=== PATIENT | female | born 1960 | race African-American/Black ===

== ENCOUNTER → 2016-11-11 | Outpatient (CLI) | payer OTHER ==
[~2016-11-11] MED LIST: ALLEGRA-D 12 H1 EAC2 PO; AVALIDE 300-251 EACH PO; CALTRATE-600 W1 EACH PO; CLONAZEPAM PO; EFFEXOR100 MG PO; FLONASE INH; LORTAB 5 MG/5001 TA1 PO; MULTIVITAMINS PO; PRILOSEC 10MG C10 M1 PO; VITAMIN D1000 UNI1 PO; VITAMINC500 PO
== END ==
LOC: RAD 09:40
DX: Z12.31 Encounter for screening mammogram for malignant neoplasm of breast (principal)

== ENCOUNTER → 2017-11-27 | Outpatient (CLI) | payer OTHER | LOC: RAD 08:36 | DX: Z12.31 Encounter for screening mammogram for malignant neoplasm of breast (principal) ==

== ENCOUNTER → 2018-11-30 | Outpatient (CLI) | payer OTHER | LOC: RAD 01:19 | DX: Z12.31 Encounter for screening mammogram for malignant neoplasm of breast (principal) ==

== ENCOUNTER → 2020-02-01 | Outpatient (CLI) | payer BC, OTHER | LOC: RAD 10:43 | PROVIDERS: ATTEND Internal Medicine | DX: Z12.31 Encounter for screening mammogram for malignant neoplasm of breast (principal) ==

== ENCOUNTER → 2021-03-22 | Outpatient (CLI) | payer BC, OTHER | LOC: BC 03-21 10:04 → RAD 14:14 | DX: Z12.31 Encounter for screening mammogram for malignant neoplasm of breast (principal) ==